=== PATIENT | female | born 1990 | race Caucasian/White ===

== ENCOUNTER → 2020-08-05 10:46 | Outpatient (CLI) | payer BC, SELFPAY ==
--- NOTE | ~2020-08-05 | US_ITS ---
EXAMINATION: US OB >= 14 weeks Fetus EXAM DATE: 08/05/2020 11:42 INDICATION: Anatomy scan . 2nd trimester. TECHNIQUE: Pelvic obstetrical transabdominal sonogram was performed by a technologist. There are mu ltiple grayscale and Doppler images available for interpretation. There are no earlier studies of th is gestation for comparison. FINDINGS: There is a single fetus identified in vertex presentation with a heart rate of 150 beats pe r minute. The placenta is located in the anterior position. There is no sonographic evidence of retr oplacental hemorrhage identified. There is subjectively expected amount of amniotic fluid. Placental margin to internal cervical os distance is 6.7 cm. BIOMETRIC DATA: Biparietal diameter (BPD): 5.1cm ----------------> 21 weeks 3 days. Head circumference (HC): 19.7 cm ----------------> 21 weeks 6 days. Abdominal circumference (AC): 16.9 cm ----------> 21 weeks 6 days. Femur length (FL): 3.4 cm --------------------------> 20 weeks 6 days. These measurements are concordant. HC/AC ratio is 1.16 (The 5th -- 95th percentile range is 1.06-1.24. Estimated weight is 426 g +/- 64 g. This is the 54th percentile when the currently reported cl inical gestation age 21 weeks 2 days, clinical estimated date of delivery (CHANG-OPE) 12/14/2020 is used . estimated gestational age based on measurements from this exam is 21 weeks 4 days, with an es timated date of delivery (CHANG-AUA) 12/12. ANATOMIC SURVEY: The following anatomy is identified and is sonographically normal in appearance: Cerebral ventricles Cerebellum Cisterna magna Nuchal fold CTL-spine Four-chamber heart Diaphragm Stomach Kidneys Bladder Three-vessel cord Cord insertion IMPRESSION: 1. Single fetus in vertex presentation with heart rate 150 beats per minute. 2. Estimated weight of 426 grams, 54th percentile using the currently reported clinical gestat ion age of 20 weeks 2 days, CHANG(OPE) 12/14. 3. Normal anatomy scan. Reviewed, dictated and finalized at location A. Y POLISHER IMPRESSION: 1. Single fetus in vertex presentation with heart rate 150 beats per minute. 2. Estimated weight of 426 grams, 54th percentile using the currently re ported clinical gestation age of 20 weeks 2 days, CHANG(OPE) 12/14. 3. Normal anatomy scan.
== END ==
PROVIDERS: Visit Provider Obstetrics & Gynecology
DX: Z34.80 Encounter for supervision of other normal pregnancy, unspecified trimester (principal); Z3A.20 20 weeks gestation of pregnancy
CPT/HCPCS: 76805

== ENCOUNTER → 2020-11-07 10:42 | Outpatient (CLI) | payer BC, SELFPAY ==
--- NOTE | ~2020-11-07 | US_ITS ---
EXAMINATION: US OB follow up DATE: 11/07/2020 11:09 INDICATION: Large for gestational age, third trimester TECHNIQUE: Real-time ultrasound of the pelvis was performed. The interpreting radiologist was not pre sent for the study. COMPARISON: None. FINDINGS: There is a single living fetus in vertex presentation. The placenta is anterior. card iac activity and movement are noted. heart rate is 168 beats per minute (bpm). The amniot ic fluid index is 17.7 cm which is normal. The following biometric data were obtained: Biparietal diameter (BPD): 9.2 cm; head circumference (HC): 33.2 cm; abdominal circumference (AC): 32 .7 cm; femur length (FL): 6.9 cm. These measurements are concordant. Estimated weight is 3005 g +/- 450 g, which correlates with the 93rd percentile when 12/14/2020 is used as estimated date of delivery. As single measurements, these parameters are each equal to the following estimated gestational ages w ith ranges of +/- 2 standard deviations: BPD: 37 weeks 4 days ( 34 weeks 3 days - 40 weeks 6 days). HC: 37 weeks 6 days ( 35 weeks 1 days - 40 weeks 4 days). AC: 36 weeks 5 days ( 33 weeks 4 days - 39 weeks 5 days). FL: 35 weeks 5 days ( 32 weeks 6 days - 38 weeks 5 days). estimated gestational age based solely on measurements from this exam is 37 weeks 0 days +/- 2 weeks 4 days. IMPRESSION: 1. Single living fetus in vertex presentation. 2. Estimated weight is 3005 g +/- 450 g, which correlates with the 93rd percentile when 12/15/19 21 is used as estimated date of delivery. 3. Normal amniotic fluid index. Reviewed, dictated and finalized at location A. CAL CSR IMPRESSION: 1. Single living fetus in vertex presentation. 2. Estimated weight is 3005 g +/- 450 g, which correlates with the 93rd p ercentile when 12/14/2020 is used as estimated date of delivery. 3. Normal amniotic fluid index.
== END ==
PROVIDERS: Visit Provider Obstetrics & Gynecology
DX: Z36.89 Encounter for other specified antenatal screening (principal)
CPT/HCPCS: 76816

== ENCOUNTER 2020-12-09 04:58 | Inpatient (IN) | payer BC, SELFPAY ==
[2020-12-09] VITALS (154 sets, daily range): BP systolic 93–164; BP diastolic 52–123; PULSE 57–168; RESP 20; TEMP 36.6–37; O2SAT 92–100; BMI 39.0
--- NOTE | 2020-12-09 05:32 | LDADM ---
This patient, Lori Richardson, was admitted to Labor/Delivery/Recovery 102 on 12/09/20 at 04:58. Plans for labor, pain management and were discussed with patient. Patient/family oriented to hospital policies and general routines including ID bracelet, bed and alarms, visiting hours, pain management, procedures, bathroom and other care routines, personal items, smoking policy, room service/diet and guest tray routines, security routines, and visiting hours. Patient/Family are encouraged to report perceived risks to care and to ask questions if they do not understand what they are told or what they should do. See OBIX for further documentation.
[2020-12-09 05:34] LABS: Basophils Percent Auto 0.2 % (0.2-1.2); Eosinophils Absolute Auto 0.1 K/mm3 (0-0.3); Eosinophils Percent Auto 0.8 % (0-4.4); Hematocrit 36.9 % (37.0-47.0); Hemoglobin 12.6 g/dL (12.0-15.0); Immature Granulocyte Absolute 0.06 K/mm3 (0.00-0.031); Immature Granulocyte Percent A 0.4 % (0-0.5); Lymphocytes Absolute Auto 3.36 K/mm3 (0.9-3.2); Lymphocytes Percent Auto 24.1 % (18.3-44.2); Mean Corpuscular HGB Conc 34.1 g/dl (32-36); Mean Corpuscular Hemoglobin 30.7 pg (26-34); Mean Platelet Volume 10.3 fl (7.4-10.4); Monocytes Absolute Auto 1.1 K/mm3 (0.1-0.6); Monocytes Percent Auto 7.7 % (2.6-8.5); Neutrophils Absolute Auto 9.3 K/mm3 (1.3-6.7); Neutrophils Percent Auto 66.8 % (45.5-73.1); Platelet Count Result 299 k/mm3 (150-375); Red Cell Distribution Width 13.3 % (11.5-14.5)
--- NOTE | 2020-12-09 05:58 | PM.IMHP ---
H&P: HPI History of Present Illness Date/Time: 12/09/20 05:58 29-year-old 2 para 1 whose EDC is 12/14/2020 confirmed by 6 week ultrasound presents at term for induction of labor. Her has been uncomplicated. Chief Complaint: ioll Review of Systems Review of Systems: All systems reviewed & are unremarkable except as noted in HPI and below PMFSH Family History Family History Father Hypertension Cerebrovascular accident Mother Hypertension Grandparent Family history of malignant neoplasm of ovary Social History Social History Smoking status: Former smoker Smoking end date: 09/19/15 Alcohol intake: current Substance use: never Spiritual care concerns: No Meds Home Medications and Allergies Home Medications Medication Instructions Recorded Confirmed Type ondansetron HCl [Zofran] 4 mg PO Q6H PRN 11/17/20 11/17/20 History prenat.vits,laura,[id number] 1 tablet PO DAILY 11/17/20 11/17/20 History [ #2] Allergies Allergy/AdvReac Type Severity Reaction Status Date / Time No Known Allergies Allergy Unknown Verified 11/17/20 13:45 Exam Const: General: no acute distress Eyes: General: appearance normal, both eyes and all related structures Neck: Neck: supple and no JVD Thyroid: thyroid normal Resp: Effort & Inspection: normal respiratory effort Auscultation: clear to auscultation bilaterally Cardio: Rate: regular rate Rhythm: regular rhythm GI: Inspection: non-distended GI Palp: Yes Soft to palpation, No Tenderness to palpation present (GI) and No Guarding due to palpation present (GI) Auscultation: normal bowel sounds : General: Yes bladder normal to palpation External Female Exam: normal external appearance Speculum Exam - Vagina: normal appearance of the vagina Speculum Exam - Cervix: Cervical os closed ( Cervix 2/50%/ -2. Attempted arom. FHTs reassuring) Skin: General skin exam: no rashes or lesions noted Extrem: General: normal to inspection and no edema Psych: Mental Status: mental status grossly normal Affect: normal affect H&P: Results Labs Labs: Short CBC 12/09/20 Range/Units 05:29 WBC 14.0 H (4.5-10.0) K/mm3 Hgb 12.6 (12.0-15.0) g/dL Hct 36.9 L (37.0-47.0) % Plt Count 299 (150-375) k/mm3 Assessment and Plan Additional Plan impression: Term Plan: Medical induction of labor. Spontaneous vaginal delivery is expected.
[2020-12-09] MEDS: OXYTOCIN 30 UNITS/NS 500 ML 30 UNITS/500 ML BAG IV CONT (06:04)
[2020-12-09] MEDS: LACTATED RINGERS 1,000 ML 125 ML IV CONT ×2 (06:05→08:54)
--- NOTE | 2020-12-09 06:09 | P.PNAN_ITS ---
Anes - Eval Pre Procedure Procedure: labor epidural Date/Time: 12/09/20 06:09 Surgeon: justa aguiar Pre Op Diagnosis: IOL Patient Data Age: 30 Gender: F Height: 1.75 m Weight: 120 kg Last Vital Signs Pulse 90 12/09/20 06:04 BP 142/83 H 12/09/20 06:04 Allergies Allergy/AdvReac Type Severity Reaction Status Date / Time No Known Allergies Allergy Unknown Verified 11/17/20 13:45 Home Medications Medication Instructions Recorded Confirmed Type ondansetron HCl [Zofran] 4 mg PO Q6H PRN 11/17/20 11/17/20 History prenat.vits,laura,[id number]-whkq-yacur 1 tablet PO DAILY 11/17/20 11/17/20 History [ #2] Laboratory Tests 12/09/20 12/09/20 05:29 05:29 WBC 14.0 K/mm3 H K/mm3 (4.5-10.0) RBC 4.10 M/mm3 L M/mm3 (4.2-5.4) Hgb 12.6 g/dL g/dL (12.0-15.0) Hct 36.9 % L % (37.0-47.0) MCV 90.0 fl fl (80-100) MCH 30.7 pg pg (26-34) MCHC 34.1 g/dl g/dl (32-36) RDW 13.3 % % (11.5-14.5) Plt Count 299 k/mm3 k/mm3 (150-375) MPV 10.3 fl fl (7.4-10.4) Immature Gran % (Auto) 0.4 % % (0-0.5) Neut % (Auto) 66.8 % % (45.5-73.1) Lymph % (Auto) 24.1 % % (18.3-44.2) [place] % (Auto) 7.7 % % (2.6-8.5) Eos % (Auto) 0.8 % % (0-4.4) Baso % (Auto) 0.2 % % (0.2-1.2) Lymph # (Auto) 3.36 K/mm3 H K/mm3 (0.9-3.2) [place] # (Auto) 1.1 K/mm3 H K/mm3 (0.1-0.6) Eos # (Auto) 0.1 K/mm3 K/mm3 (0-0.3) Baso # (Auto) 0.0 K/mm3 K/mm3 (0.0-0.1) Abs Immat Gran (auto) 0.06 K/mm3 H K/mm3 (0.00-0.031) Absolute Neuts (auto) 9.3 K/mm3 H K/mm3 (1.3-6.7) Absolute Nucleated RBC 0.0 K/mm3 K/mm3 (0.0-0.012) Nucleated RBC % 0.0 % % (0.0-0.2) RPR Pending Patient hx anesthesia problems: none Family hx anesthesia problems: none [facility] [place] Family History Family History Father Hypertension Cerebrovascular accident Mother Hypertension Grandparent Family history of malignant neoplasm of ovary Social History Social History Smoking packs per day: 0.5 Smoking cigarettes per day: 10.0 Years smoked: 15 Smoking pack-years: 7.50 Smoking status: Former smoker Smoking end date: 09/19/15 Alcohol intake: current Substance use: never Spiritual care concerns: No Exam Day of Procedure 12/09/20 06:09
[2020-12-09 06:59] LABS: Rapid Plasma Reagin Non-Reactive (NonReactive)
--- NOTE | 2020-12-09 09:30 | P.PNOB_ITS ---
OB - PN: Subj Subjective Date/time seen: 12/09/20 09:30 fhts reassuring cx 2/50 -2 attemped arom OB - PN: Obj Data Labs CBC & Chem 7: 12/09/20 05:29 Labs: Laboratory Results - last 24 hr 12/09/20 12/09/20 12/09/20 05:29 05:29 05:29 WBC 14.0 H RBC 4.10 L Hgb 12.6 Hct 36.9 L MCV 90.0 MCH 30.7 MCHC 34.1 RDW 13.3 Plt Count 299 MPV 10.3 Immature Gran % (Auto) 0.4 Neut % (Auto) 66.8 Lymph % (Auto) 24.1 [place] % (Auto) 7.7 Eos % (Auto) 0.8 Baso % (Auto) 0.2 Lymph # (Auto) 3.36 H [place] # (Auto) 1.1 H Eos # (Auto) 0.1 Baso # (Auto) 0.0 Abs Immat Gran (auto) 0.06 H Absolute Neuts (auto) 9.3 H Absolute Nucleated RBC 0.0 Nucleated RBC % 0.0 RPR Non-reactive Blood Type A Negative Antibody Screen Negative OB - PN A/P Time Spent With Patient Time: Total time spent is greater than 50% in coordination of care (as d ocumented) at patient's floor/unit and/or counseling patient:
[2020-12-09] MEDS: ONDANSETRON INJ 4 MG/2 ML VIAL IV PUSH (14:06)
--- NOTE | 2020-12-09 14:53 | P.PNOB_ITS ---
OB - PN: Subj Subjective Date/time seen: 12/09/20 14:53 cx 6 by rn exam few earlies and reactive iupc in with good ucs OB - PN: Obj Data Labs CBC & Chem 7: 12/09/20 05:29 Labs: Laboratory Results - last 24 hr 12/09/20 12/09/20 12/09/20 05:29 05:29 05:29 WBC 14.0 H RBC 4.10 L Hgb 12.6 Hct 36.9 L MCV 90.0 MCH 30.7 MCHC 34.1 RDW 13.3 Plt Count 299 MPV 10.3 Immature Gran % (Auto) 0.4 Neut % (Auto) 66.8 Lymph % (Auto) 24.1 [place] % (Auto) 7.7 Eos % (Auto) 0.8 Baso % (Auto) 0.2 Lymph # (Auto) 3.36 H [place] # (Auto) 1.1 H Eos # (Auto) 0.1 Baso # (Auto) 0.0 Abs Immat Gran (auto) 0.06 H Absolute Neuts (auto) 9.3 H Absolute Nucleated RBC 0.0 Nucleated RBC % 0.0 RPR Non-reactive Blood Type A Negative Antibody Screen Negative OB - PN A/P Time Spent With Patient Time: Total time spent is greater than 50% in coordination of care (as documented) at patient's floor/unit and/or counseling patient:
--- NOTE | 2020-12-09 15:41 | P.PCNOB_ITS ---
OB - Delivery Note Procedure Delivery date: 12/09/20 Procedure: mil Intrapartal events: None Induction method: AROM Delivery augmentation: pitocin Delivery monitor: external FHT Route of delivery: Episiotomy description: None Laceration Description: Perineal - 1st Degree Delivery repair: vicryl Specimen: No Quantitative Blood Loss (ml): 58 Anesthesia type: Epidural Disposition: floor [place] Baby Date of : 12/09/20 Time of : 15:32 Weeks of gestation at delivery: 39 Infant gender: Male presentation: vertex position: Right Occiput Anterior Placenta delivery description: Spontaneous cord vessel description: 3 Vessels score one minute: 8 score five minutes: 9
[2020-12-09] MEDS: OXYTOCIN 30 UNITS/NS 500 ML 30 UNITS/500 ML BAG 125 UNITS IV CONT (15:48)
[2020-12-09] MEDS: BENZOCAINE 20% AER SPR (*SP) 56 GM CAN 1 SPRAY TOPICAL (17:05)
[2020-12-09] MEDS: WITCH HAZEL 40 PADS 1 PAD TOPICAL ×2 (17:06→23:18)
[2020-12-09] MEDS: IBUPROFEN 600 MG TABLET PO ×2 (17:06→23:05)
--- NOTE | 2020-12-09 17:35 | PC.NURSE ---
Patient transferred to post room # 282 per wheelchair. Support person present. Oriented to unit, room, information board, rooming in, admission packet and security measures. Patient verbalizes understanding.
[2020-12-09] MEDS: ACETAMINOPHEN 325 MG TABLET 650 MG PO (19:37)
[2020-12-09] MEDS: LANOLIN (LANSINOH) 7.5 GM CREAM 1 APPLIC TOPICAL (19:39)
[2020-12-10] VITALS: RESP 20; O2SAT 100
[2020-12-10] MEDS: ACETAMINOPHEN 325 MG TABLET 650 MG PO ×3 (03:22→15:57)
[2020-12-10 04:30] VITALS: BP 107/66; PULSE 75; RESP 20; TEMP 36.7; O2SAT 99
[2020-12-10] MEDS: IBUPROFEN 600 MG TABLET PO ×2 (05:03→12:48)
[2020-12-10 05:18] LABS: Hematocrit 33.3 % (37.0-47.0); Hemoglobin 11.3 g/dL (12.0-15.0)
--- NOTE | 2020-12-10 06:30 | PM.OBPNVD ---
OB - PN: Subj Subjective Date/time seen: 12/10/20 06:30 Patient comments: no complaints and pain well controlled baby status: doing well OB - PN: Obj Data Labs CBC & Chem 7: 12/10/20 04:51 Labs: Laboratory Results - last 24 hr 12/09/20 12/09/20 12/10/20 05:29 05:29 04:51 Hgb 11.3 L Hct 33.3 L RPR Non-reactive Blood Type A Negative Antibody Screen Negative OB - PN A/P Plan day: 1 Plan: routine care Time Spent With Patient Time: Total time spent is greater than 50% in coordination of care (as documented) at patient's floor/unit and/or counseling patient: Time with patient: less than 15 minutes Review of Systems Review of Systems: All systems reviewed & are unremarkable except as noted in HPI and below Exam Const: General: no acute distress Eyes: General: appearance normal, both eyes and all related structures Neck: Neck: supple and no JVD Thyroid: thyroid normal Resp: Effort & Inspection: normal respiratory effort Auscultation: clear to auscultation bilaterally Cardio: Rate: regular rate Rhythm: regular rhythm GI: Inspection: non-distended GI Palp: Yes Soft to palpation, No Tenderness to palpation present (GI) and No Guarding due to palpation present (GI) Auscultation: normal bowel sounds : General: Yes bladder normal to palpation External Female Exam: normal external appearance Speculum Exam - Vagina: normal vaginal discharge and No vaginal bleeding Speculum Exam - Cervix: nontender Bimanual exam- vagina & uterus: bladder normal to palpation and No Cervical tenderness present OB/external & speculum: No vaginal bleeding Skin: General skin exam: no rashes or lesions noted Extrem: General: normal to inspection and no edema Psych: Mental Status: mental status grossly normal Affect: normal affect
--- NOTE | 2020-12-10 06:50 | PM.DS ---
DS: Admitting Diagnosis Admitting Diagnosis Admitting Diagnosis: term iup DS: Summary Hospital Course Hospital Course: patient was admitted for induction of labor. She underwent spontaneous vaginal delivery. Her hospital course was unremarkable. She remained afebrile. She was up, waiting the difficulty, ambulating, and general without complaints Time Spent with Patient Time attestation: Total time spent providing and/or coordinating discharge services: Exam Const: General: no acute distress Eyes: General: appearance normal, both eyes and all related structures Neck: Neck: supple and no JVD Thyroid: thyroid normal Resp: Effort & Inspection: normal respiratory effort Auscultation: clear to auscultation bilaterally Cardio: Rate: regular rate Rhythm: regular rhythm GI: Inspection: non-distended GI Palp: Yes Soft to palpation, No Tenderness to palpation present (GI) and No Guarding due to palpation present (GI) Auscultation: normal bowel sounds : General: Yes bladder normal to palpation External Female Exam: normal external appearance Speculum Exam - Vagina: normal vaginal discharge and No vaginal bleeding Speculum Exam - Cervix: nontender Bimanual exam- vagina & uterus: bladder normal to palpation and No Cervical tenderness present OB/external & speculum: No vaginal bleeding Skin: General skin exam: no rashes or lesions noted Extrem: General: normal to inspection and no edema Psych: Mental Status: mental status grossly normal Affect: normal affect DS: Data Data Completed and Pending Labs on day of discharge: Labs from last 24 hours 12/10/20 12/09/20 04:51 05:29 Hgb 11.3 L Hct 33.3 L RPR Non-reactive Discharge Plan Discharge Attending physician on discharge: Price Parra Discharging Clinician: Price Parra Patient Disposition: Home, Self-Care Activity: pelvic rest Diet: heart healthy Patient Instructions: Antibiotic Form Stand Alone Forms: General Discharge Information Follow-up/Referrals: Price Parra MD [Physician] - Discharge Medications: New sertraline [Zoloft] 50 mg tablet 50 mg PO DAILY Qty: 30 RF: 0 Continued ondansetron HCl [Zofran] 4 mg Tablet 4 mg PO Q6H PRN (Reason: Nausea) RF: 0 #2 Tablet 1 tablet PO DAILY RF: 0 Date of admission: 12/09/20 04:58 Primary Care Provider: PHYSICIAN,DYNAMITE PACKING MACHINE FEEDER Admitting Provider: Price Parra Attending physician on admission: Price Parra Condition: Stable
[2020-12-10] MEDS: WITCH HAZEL 40 PADS 1 PAD TOPICAL (07:28)
[2020-12-10] MEDS: BENZOCAINE 20% AER SPR (*SP) 56 GM CAN 1 SPRAY TOPICAL (07:28)
[2020-12-10] MEDS: MULTIVIT/MIN/PREN/FOL AC/IRON TABLET 1 TAB PO (07:29)
[2020-12-10] MEDS: SERTRALINE HCL 50 MG TABLET PO (07:29)
[2020-12-10] MEDS: LANOLIN (LANSINOH) 7.5 GM CREAM 1 APPLIC TOPICAL (07:29)
[2020-12-10] MEDS: DOCUSATE SODIUM 100 MG CAPSULE PO ×2 (07:29→15:57)
--- NOTE | 2020-12-10 07:50 | WPDANLDPN2 ---
Anes-Prog Note L&D Date/Time: 12/10/20 07:50 Comfortable throughout: labor and delivery Neuraxial method: epidural Epidural/Spinal procedure site: clean & non-tender Neuro status: Neuro function grossly intact. Cardiovascular status: normal Respiratory status: normal Airway patency: baseline Mental status: baseline Post-Op hydration status: normal Vital Signs: Last Vital Signs Temp 36.7 C 12/10/20 04:30 Pulse 75 12/10/20 04:30 Resp 20 12/10/20 04:30 BP 107/66 12/10/20 04:30 Pulse Ox 99 12/10/20 04:30 Pain score (VAS): 09/28 I/O: Intake & Output 12/09/20 12/09/20 12/10/20 15:59 23:59 07:59 Intake Total 1500 1100 Output Total 141 Balance 1500 959 Post-procedural complaints: none Patient feedback: Patient satisfied with anesthetic care.
[2020-12-10 08:00] VITALS: BP 117/82; PULSE 73; RESP 18; TEMP 36.4; O2SAT 99
--- NOTE | 2020-12-10 09:45 | PC.NURSE ---
Mother called out for assist with feeding. Consulted with patient, mother reports has fed well most feedings. Mother states some tenderness with feeding on left breast. Reviewed feeding cues, frequencies, duration of feedings, feeding elimination flow sheet, and signs of adequate intake. Demonstrated stimulation techniques to wake for feeding. Assisted with to breast. Reviewed positioning/alignment in football, holding breast in C hold and guided asymmetrical latch on. was able to latch within a few attempts. Infant nursed eagerly, with steady draws and frequent swallowing noted for bursts followed with long pausing. Reviewed signs of a correct latch, effective nursing and suck swallow ratio. was able to maintain latch. Mother reported slight tenderness at times, had slipped to shallow latch. Demonstrated how to adjust latch more deeply while feeding. Mother quickly reports she can feel infant is latched more deeply and has minimal tenderness. Suggested to stimulate while feeding to keep infant awake and nursing effectively for increased stimulation and increased intake. Instructed mother to call out for RN assistance if she is unable to latch infant for feeding or she has discomfort with nursing.
--- NOTE | 2020-12-10 12:40 | PC.NURSE ---
Mother called out for assist with latch to left breast. Bruising noted to areola above nipple from incorrect latch. Mother reports she has attempted and she has pain. Reviewed positioning/alignment in football, holding breast in C hold and guided asymmetrical latch on. was able to latch correctly, mother reports pain. Infant is not drawing nipple in deeply, and sucking on the nipple only. Left breast is more firm than right and left nipple has a shallow profile. Several attempts made without a comfortable latch to mother. Discussed left breast may be easier for infant to latch and maintain deep latch. Once her milk is in and engorgement resolves, breast may soften and nipple may increase assisting infant with deep latch. Mother reports she did not have this issue with first child. Reviewed hormones and fluids may impact breast firmness and should resolve. Mother was able to independently latch to right breast. Infant nursed eagerly, with steady draws and occasional swallowing noted. Reviewed signs of a correct latch, effective nursing and suck swallow ratio. Infant was able to maintain latch without discomfort to mother. Nipple care reviewed of lanolin, warm compresses several times per day and gel pads-provided. Mother states she is want to be discharged after 24 hours. Suggested mother pump left breast if infant is not nursing on that side. Mother states she feels should have formula to replace infant not nursing on left. Advised mother it is her choice and not required at this time. Reviewed signs of adequate intake with weight, output and jaundice. Mother choose to supplement.
--- NOTE | 2020-12-10 13:10 | PC.NURSE ---
Breast pump provided due to not latching to left breast. Instructions given on breast pump care and usage, pumping schedule, nipple care, and collection and storage of breast milk. Encouraged [id number], breast massage and manual expression to stimulate supply. Assessed patient for correct flange size, placement and draw. Patient verbalizes and demonstrates understanding of instructions.
--- NOTE | 2020-12-10 14:20 | PC.NURSE ---
Self care and infant care discharge instructions given including follow up visit date and time. Pt. verbalized understanding. No questions or concerns voiced. Very pleasant and cooperative. at side.
[2020-12-11 09:30] VITALS: BP 121/87; PULSE 80; RESP 20; TEMP 36.8; O2SAT 100
--- NOTE | 2020-12-11 15:47 | PC.NURSE ---
Assisted mother with a rental pump. Mother reports she has had pain with nursing, and stopped during the night and bottle fed. Offered assist with latch while mother is here for follow up visit. Mother declines, reporting she will pump for a few days due to pain. Mother states she may call later if she chooses to return to breast. Mother states she is overwhelmed with both children and may continue to pump and bottle feed.
== END 2020-12-10 18:05 | disposition home or self-care (01) | DRG 807 ==
LOC: ANHLDR 05:04 → ANHOB2 17:37
PROVIDERS: Admitting Provider Obstetrics & Gynecology; Visit Provider Obstetrics & Gynecology
DX: O70.0 First degree perineal laceration during delivery (principal); Z37.0 Single live birth; Z3A.39 39 weeks gestation of pregnancy
CPT/HCPCS: 36415; 85014; 85018; 85025; 86592; 86850; 86900; 86901; A9270; J2405; J2590; J2795; J7120

== ENCOUNTER → 2021-03-30 09:04 | Outpatient (CLI) | payer BC, SELFPAY ==
--- NOTE | ~2021-03-30 | US_ITS ---
US right upper quadrant DATE: 03/30/2021 09:23 INDICATION: Right upper quadrant abdominal pain TECHNIQUE: Real-time imaging and Doppler analysis COMPARISON: None FINDINGS: No hepatic or pancreatic space-occupying mass lesion is evident. Normal hepatopedal portal venous flow direction. The common bile duct measures 3 mm, normal. No gallstones or gallbladder wall thickening or abnormal pericholecystic fluid collection. Negative sonographic Sanchez's sign. IMPRESSION: Negative examination Reviewed, dictated and finalized at Location [facility]. Reviewed, dictated and finalized at location B. IMPRESSION: Negative examination
== END ==
PROVIDERS: Visit Provider Obstetrics & Gynecology
DX: R10.11 Right upper quadrant pain (principal)
CPT/HCPCS: 76705